=== PATIENT | male | born 1965 | race Caucasian/White ===

== ENCOUNTER → 2018-05-22 | Day surgery (SDC) | payer OTHER ==
[2018-05-20 11:22] VITALS: BMI 24.3
[~2018-05-22] MED LIST: LACTATED RINGERS 1,000 ML IV SCH; LIDOCAINE 1% 20 ML VIAL (10MG/ML) FOR IV START INTRADERMA ONE; LIDOCAINE 1% INJ 10MG/ML (20 ML MDV) ONE; PROPOFOL 10 MG/ML 20 ML VIAL IV ONE
[2018-05-22 08:54] VITALS: RESP 16; TEMP 97.8
--- NOTE | 2018-05-22 10:28 | P.GSHP ---
History of Present Illness H&P Date: 05/22/18 Chief Complaint: GERD This is a 53-year-old male who presents safer EGD. He's had issues with GERD. Past Medical History Past Medical History: GERD/Reflux Additional Past Medical History / Comment(s): SEASONAL ALLERGIES History of Any Multi-Drug Resistant Organisms: None Reported Past Surgical History: Tonsillectomy Additional Past Surgical History / Comment(s): COLONOSCOPY Past Anesthesia/Blood Transfusion Reactions: No Reported Reaction Smoking Status: Former smoker - Past Family History Father Family Medical History: Cancer Medications and Allergies Home Medications Medication Instructions Recorded Confirmed Type Fexofenadine HCl [Stephie Allergy] 1 tablet PO DAILY 05/22/18 05/22/18 History Omeprazole 40 mg PO DAILY 05/22/18 05/22/18 History Allergies Allergy/AdvReac Type Severity Reaction Status Date / Time No Known Allergies Allergy Verified 05/20/18 11:16 Surgical - Exam Vital Signs Temp Pulse Resp BP Pulse Ox 97.8 F 68 16 136/77 97 05/22/18 08:53 05/22/18 08:53 05/22/18 08:53 05/22/18 08:53 05/22/18 08:53 - General well developed, well nourished, no distress - Eyes PERRL - ENT normal pinna - Neck no masses - Respiratory normal expansion - Cardiovascular Rhythm: regular - Abdomen Abdomen: soft, non tender Assessment and Plan Assessment: GERD. We'll perform EGD.
--- NOTE | 2018-05-22 10:46 | P.OP ---
Date of Procedure: 05/22/18 Preoperative Diagnosis: GERD Postoperative Diagnosis: GERD Mild antral gastritis No significant hiatal hernia Mild esophagitis Procedure(s) Performed: EGD Anesthesia: NOLA Surgeon: Anival Machado Pathology: other (Antral, esophagus) Condition: stable Disposition: PACU Description of Procedure: The patient's placed on the endoscopy table in the lateral position. He received IV sedation. The gastro-placed oropharynx passed in the esophagus and stomach. Scope was then placed through the pylorus. The first and second portion of the duodenum appeared normal. Scope was then brought back the antrum and this appeared mildly inflamed. A biopsies performed. The scope was then retroflexed and remainder of the stomach appeared normal. There is no significant hiatal hernia. The GE junction was at 40 cm. The distal esophagus appeared mildly inflamed a biopsies was performed. The proximal esophagus Appeared. Normal. Scope was withdrawn for patient.
[2018-05-22 11:19] VITALS: BP 113/73; PULSE 58
--- NOTE | 2018-05-22 15:25 | NM ---
Nuclear medicine hepatobiliary scan. HISTORY: Pain. DOSAGE: The patient received 8 ounces of ensure plus and 5.28 mCi of Technetium 99m Choletec. FINDINGS: There is normal hepatic extraction. The gallbladder is seen by 15 minutes. There is bilia ry to bowel clearance by 30 minutes. Ejection fraction is 56%. IMPRESSION: 1. Normal hepatobiliary exam
== END ==
LOC: ORWHC2ENDO 08:31
PROVIDERS: ATTEND Surgery
DX: K31.9 Disease of stomach and duodenum, unspecified (principal); K21.0 Gastro-esophageal reflux disease with esophagitis; Z79.899 Other long term (current) drug therapy; F17.200 Nicotine dependence, unspecified, uncomplicated
CPT/HCPCS: 88305; 78226; 43239; A9537; J2001; J2704

== ENCOUNTER → 2018-08-06 | Outpatient (CLI) | payer OTHER ==
--- NOTE | 2018-08-07 06:07 | CT ---
EXAMINATION TYPE: CT abdomen pelvis w con DATE OF EXAM: 08/06/2018 COMPARISON: Correlation HIDA scan 05/22/2018 HISTORY: 53-year-old male abdominal and groin pain TECHNIQUE: Contiguous axial scanning of the abdomen and pelvis following administration of 100 ml Iso cyn 300 IV contrast. Delayed images through the kidneys and coronal/sagittal reconstructions perform ed. CT DLP: 629.9 mGycm Automated exposure control for dose reduction was used. FINDINGS: Heart normal size without pericardial effusion. Some strandy atelectasis at the left base. Approximately 5 subcentimeter hypodensities within the liver too small for accurate CT characterizati on and nonspecific, likely tiny cysts. Additional small amount of focal fat along the anterior falcif orm ligament. No biliary ductal dilatation. Portal venous system is patent. Small diverticulum of the second portio n of the duodenum incidentally noted projecting into the pancreatic head region. Gallbladder, adrenal glands, kidneys, spleen, and pancreas appear within normal limits. Numerous scattered nonenlarged and borderline sized mesenteric lymph nodes measure up to 7 mm, for ex ample, refer to coronal image 30. Nonenlarged retroperitoneal lymph nodes. An aortocaval lymph node, axial image 33 measures 7 mm. No dilated small bowel, free fluid, or free air. The appendix is slightly patulous and appears to have some stool material and scattered air within. N o surrounding inflammation or abnormal wall thickening seen. There is some fold thickening along the cecum at the level of the ileocecal junction, referred to cor onal image 37 and axial image 45. Oral contrast has progressed to the descending colon. Mild divertic ular change along the left side of the colon. Mild wall thickening along the proximal to mid sigmoid probably due to nondistention rather than mild inflammation. No significant surrounding inflammatory change. Bladder is urine distended. Prostate gland measures 4.4 cm wide. Patulous right inguinal canal probab ly with a 6.1 x 2.4 cm fatty indirect inguinal hernia if symptoms localize to the site, refer to marjorie nal images 25 through 31. No abnormal fluid collection in the pelvis or pelvic lymphadenopathy. Bones: Mild degenerative changes at the hips. Degenerative anterior bridging ankylosis at the left SI joint along with a left L5 hemisacralization and some degenerative changes at the assimilation joint . Additional degenerative disc disease above at L4-L5 and trace grade 1 retrolisthesis at L3-L4. IMPRESSION: 1. PATULOUS RIGHT INGUINAL CANAL, POSSIBLY REPRESENTING A FAT-CONTAINING INDIRECT INGUINAL HERNIA PAOLA SURING 6.1 X 2.4 CM IF SYMPTOMS LOCALIZE TO THIS SITE. 2. LEFT-SIDED COLONIC DIVERTICULOSIS. MILD WALL THICKENING ALONG THE PROXIMAL TO MID SIGMOID PROBABLY RELATES TO UNDERDISTENTION RATHER THAN MILD ACUTE DIVERTICULITIS. CLINICALLY CORRELATE. 3. FOCAL MODERATE FOLD THICKENING CENTERED IN THE CECUM NEAR THE ILEOCECAL JUNCTION. MUCOSAL REDUNDAN CY OR A NONSPECIFIC COLITIS ARE POSSIBLE. RECOMMEND DIRECT VISUALIZATION TO EXCLUDE NEOPLASM IF ROUTI NE SCREENING IS NOT BEING PERFORMED. 4. SOME SCATTERED NONENLARGED AND BORDERLINE SIZED MESENTERIC LYMPH NODES MEASURING UP TO 7 MM LIKELY REACTIVE/POST INFLAMMATORY.
== END | disposition home or self-care (01) ==
LOC: RADCTMAIN 16:06
PROVIDERS: ATTEND Family Medicine
DX: K57.30 Diverticulosis of large intestine without perforation or abscess without bleeding (principal)
CPT/HCPCS: 74177; Q9967

== ENCOUNTER → 2018-10-03 | Outpatient (CLI) | payer OTHER ==
[2018-10-03 13:43] LABS: HCT 47.5 % (39.0-53.0); HGB 14.8 gm/dL (13.0-17.5); MCH 29.3 pg (25.0-35.0); MCHC 31.1 g/dL (31.0-37.0); Mean Platelet Volume 6.3; Platelet Count 237 k/uL (150-450); RBC 5.06 m/uL (4.30-5.90); RDW 12.1 % (11.5-15.5); WBC 6.8 k/uL (3.8-10.6)
== END | disposition home or self-care (01) ==
LOC: LABPAT 11:13
PROVIDERS: ATTEND Surgery
DX: Z01.818 Encounter for other preprocedural examination (principal); Z01.812 Encounter for preprocedural laboratory examination; K40.90 Unilateral inguinal hernia, without obstruction or gangrene, not specified as recurrent
CPT/HCPCS: 36415; 85027; 93005

== ENCOUNTER 2018-10-07 07:53 | Day surgery (SDC) | payer OTHER ==
[2018-10-03 08:23] VITALS: BMI 25.0
[~2018-10-07 07:53] MED LIST changes: +DEXAMETHASONE SOD PHOSPHATE 10 MG/ML 1 ML VIAL IV ONE; +HEPARIN SODIUM,PORCINE 5,000 UNIT/ML 1 ML VIAL SQ ONE; +HYDROmorphone 0.5 MG/0.5 ML SYRINGE IVP PRN; -LIDOCAINE 1% 20 ML VIAL (10MG/ML) FOR IV START INTRADERMA ONE; -LIDOCAINE 1% INJ 10MG/ML (20 ML MDV) ONE; +MIDAZOLAM (PF) 2 MG/2 ML VIAL IV PRN; +ONDANSETRON 4 MG/2 ML VIAL IVP ONE; -PROPOFOL 10 MG/ML 20 ML VIAL IV ONE; +SCOPOLAMINE 1.5MG/72HR PATCH TRANSDERM ONE; +ceFAZolin IN SWFI 2 GM/20 ML SYRINGE IVP ONE
[2018-10-07] MEDS ORDERED: fentaNYL (PF) 50 MCG/ML 2 ML AMP IVP ONE (09:10)
--- NOTE | 2018-10-07 09:32 | P.ONQ ---
Anesthesiology Proc Note - PNB - Peripheral Nerve Block Performed Right Transversus Abdominis Single Time Out Performed: Yes Procedure Start Time: 09:10 Indication: Acute Post-Operative Pain, Analgesia Sedation Type: Sedate with meaningful contact maintained Preparation: Sterile Prep Position: Supine Catheter: None Needle Types: Other (see comment) (PAJUNK) Needle Size: 100mm (4") Needle Gauge: 21 Technique: Ultrasound Injectate: Other (see comment) (Ropivacaine 0.25%/lidocaine 0.5% 30 mL) Adjunct: Epinephrine (see comment for dilution ratio) (1:200,000) Blood Aspirated: No Pain Paresthesia on Injection Noted: No Resistance on Injection: Normal Events: Uneventful and Well Tolerated
--- NOTE | 2018-10-07 09:35 | P.GSHP ---
History of Present Illness H&P Date: 10/07/18 Chief Complaint: Right inguinal hernia This a 53-year-old male who presents today for laparoscopic robotic repair of right inguinal hernia. Patient's complaints of right inguinal pain and mass. Past Medical History Past Medical History: GERD/Reflux Additional Past Medical History / Comment(s): SEASONAL ALLERGIES. HERNIA History of Any Multi-Drug Resistant Organisms: None Reported Past Surgical History: Tonsillectomy Additional Past Surgical History / Comment(s): COLONOSCOPY Past Anesthesia/Blood Transfusion Reactions: No Reported Reaction Smoking Status: Former smoker - Past Family History Father Family Medical History: Cancer Medications and Allergies Home Medications Medication Instructions Recorded Confirmed Type Fexofenadine HCl [Stephie Allergy] 1 tablet PO DAILY 05/22/18 10/07/18 History Omeprazole 40 mg PO DAILY 05/22/18 10/07/18 History Allergies Allergy/AdvReac Type Severity Reaction Status Date / Time No Known Allergies Allergy Verified 10/07/18 08:40 Surgical - Exam Vital Signs Temp Pulse Resp BP Pulse Ox 97.0 F L 67 17 130/65 98 10/07/18 09:08 10/07/18 09:08 10/07/18 09:08 10/07/18 09:08 10/07/18 09:08 - General well developed, well nourished, no distress - Eyes PERRL - ENT normal pinna - Neck no masses, no bruits - Respiratory normal expansion - Cardiovascular Rhythm: regular - Abdomen Abdomen: soft, non tender Hernia: inguinal (Reducible right inguinal hernia) Assessment and Plan Assessment: Right angle hernia. We'll perform laparoscopic robotic-assisted repair.
[2018-10-07] MEDS ORDERED: GLYCOPYRROLATE 0.2 MG/ML 2 ML VIAL ONE (10:07)
[2018-10-07] MEDS ORDERED: ROCURONIUM BROMIDE 10 MG/ML 10 ML VIAL IV ONE (10:07)
[2018-10-07] MEDS ORDERED: NEOSTIGMINE 1 MG/ML 10 ML VIAL ONE (10:07)
[2018-10-07] MEDS ORDERED: PROPOFOL 10 MG/ML 20 ML VIAL IV ONE (10:07)
[2018-10-07] MEDS ORDERED: KETOROLAC 30 MG/ML 1 ML VIAL ONE (10:07)
[2018-10-07] MEDS ORDERED: BUPIVACAINE-EPI 0.5%-1:200,000 10 ML VIAL SQ ONE (10:07)
[2018-10-07] MEDS ORDERED: fentaNYL (PF) 50 MCG/ML 2 ML AMP ONE (10:07)
[2018-10-07] MEDS ORDERED: ROPIVACAINE 5 MG/ML 30 ML VIAL ONE (10:07)
[2018-10-07] MEDS ORDERED: MIDAZOLAM 2 MG/2 ML VIAL ONE (10:07)
[2018-10-07] MEDS ORDERED: SUCCINYLCHOLINE CHLORIDE 100 MG/5 ML SYR IV ONE (10:07)
--- NOTE | 2018-10-07 11:06 | P.OP ---
Date of Procedure: 10/07/18 Preoperative Diagnosis: Right inguinal hernia Postoperative Diagnosis: Right inguinal hernia Procedure(s) Performed: Laparoscopic robotic repair of right inguinal hernia Excision of cord lipoma Anesthesia: ISAAC VACA Surgeon: Anival Machado Estimated Blood Loss (ml): 5 Pathology: other (Cord lipoma) Condition: stable Disposition: PACU Description of Procedure: TThe patient's placed on the operating table in the supine position. The patient received general anesthesia. The patient's abdomen was prepped and draped in usual sterile fashion. The skin was anesthetized 1% local Xylocaine at the incision sites. Using an 11 blade a skin incision was made at the umbilicus. The fascia was grasped with a Sohail and then the peritoneal cavity was entered with the Veress needle. Position of the Veress needle was confirmed with a positive drop test. After adequate insufflation a 5 mm trocar was placed into the peritoneal cavity. The Laparoscope was placed the peritoneal cavity. And a robotic 8 mm trocar was placed in the right lateral position and then another 8 mm robotic trochars placed in the left lateral position. The original 5 mm trocar was exchanged for a 12 mm trocar. The patient was placed in reverse Trendelenburg and then the patient was docked to the robot. Next the peritoneum over top of the hernia was incised and then using blunt and sharp dissection and electrocautery the hernia sac was dissected free from the floor of the inguinal canal. There was a cord lipoma which was dissected free. The hernia sac was completely reduced into the peritoneal cavity. And then using the Pro envelope maker mesh the hernia was repaired. The peritoneum was then sutured with 20V lock suture. The patient was then undocked the robot. The needle was withdrawn from the peritoneal cavity. The cord lipoma was extracted sent to pathology. The umbilical trocar site was closed with 0 Ethibond suture. The skin was closed interrupted 3-0 Monocryl suture. Dermabond dressing was applied. Patient was sent to recovery in stable condition.
[2018-10-07] MEDS ORDERED: LACTATED RINGERS 1,000 ML IV ONE (11:07)
[2018-10-07 11:26] VITALS: TEMP 97.5
[2018-10-07 11:32] VITALS: RESP 16
[2018-10-07] MEDS ORDERED: HYDROcodone/APAP 7.5-325MG 1 EACH TAB PO ONE (11:55)
[2018-10-07 12:37] VITALS: BP 110/71; PULSE 65
== END 2018-10-07 13:06 | disposition home or self-care (01) ==
LOC: OR 07:53
PROVIDERS: ATTEND Surgery
DX: K40.90 Unilateral inguinal hernia, without obstruction or gangrene, not specified as recurrent (principal); K21.9 Gastro-esophageal reflux disease without esophagitis; J30.2 Other seasonal allergic rhinitis; Z98.890 Other specified postprocedural states; Z79.899 Other long term (current) drug therapy; Z80.9 Family history of malignant neoplasm, unspecified
CPT/HCPCS: 49650; S2900; 64486; 88304